=== PATIENT | male | born 1965 | race Caucasian/White ===

== ENCOUNTER → 2016-05-03 | Outpatient (CLI) | payer BC ==
--- NOTE | 2016-05-03 18:18 | XR ---
EXAMINATION TYPE: XR chest 2V DATE OF EXAM: 05/03/2016 6:03 PM COMPARISON: NONE HISTORY: Hypertension TECHNIQUE: Frontal and lateral views of the chest are obtained. FINDINGS: Heart and mediastinum are normal. Lungs are clear. Diaphragm is normal. Bony thorax appear s normal. IMPRESSION: Normal chest
== END | disposition home or self-care (01) ==
LOC: RADXRMAIN 17:51
PROVIDERS: ATTEND Nurse Practitioner Family
DX: I10 Essential (primary) hypertension (principal)
CPT/HCPCS: 71020

== ENCOUNTER → 2021-11-05 | Outpatient (CLI) | payer BC ==
[2021-11-05 11:57] LABS: Creatinine,Urine Random 114.3 mg/dL
[2021-11-05 17:16] LABS: African American GFR (CKD) 63.7 (60.0-200.0); Anion Gap 11.8 mmol/L (10.00-18.00); BUN/Creat Ratio 14.86 Ratio (12.00-20.00); Blood Urea Nitrogen 20.8 mg/dL (9.0-27.0); Calcium 10.1 mg/dL (8.7-10.3); Carbon Dioxide 24.2 mmol/L (20.0-27.5); Potassium 4.6 mmol/L (3.5-5.5); Uric Acid 5.3 mg/dL (3.7-8.7)
[2021-11-05 17:35] LABS: HCT 44.4 % (39.6-50.0); HGB 14.1 g/dL (13.0-17.0); MCH 30.7 pg (27.0-32.0); MCHC 31.8 g/dL (32.0-37.0); MCV 96.5 fL (80.0-97.0); Mean Platelet Volume 10.3 fL (9.5-12.2); NRBC Per 100 WBC 0 /100 WBCS (0.0-0.0); Platelet Count 229 X 10*3/uL (140-440); RDW 12.9 % (11.5-14.5); WBC 5.54 X 10*3/uL (4.50-10.00)
== END | disposition home or self-care (01) ==
LOC: LABWHC1 11:02
PROVIDERS: ATTEND Internal Medicine Nephrology
DX: N18.31 Chronic kidney disease, stage 3a (principal)
CPT/HCPCS: 36415; 80048; 82306; 82570; 84156; 84550; 85027; 87086

== ENCOUNTER → 2022-07-15 | Outpatient (CLI) | payer BC ==
[2022-07-15 17:31] LABS: Basophils # (A) 0.06 X 10*3/uL (0.00-0.10); Basophils % (A) 0.6 %; Eosinophils # (A) 0.34 X 10*3/uL (0.04-0.35); Eosinophils % (A) 3.7 %; HCT 39.1 % (39.6-50.0); HGB 13.2 g/dL (13.0-17.0); Immature Grans, Automated 0.5 %; Lymphocytes # (A) 1.11 X 10*3/uL (0.90-5.00); MCH 30.7 pg (27.0-32.0); MCHC 33.8 g/dL (32.0-37.0); MCV 90.9 fL (80.0-97.0); Mean Platelet Volume 9.7 fL (9.5-12.2); Monocytes # (A) 0.93 X 10*3/uL (0.20-1.00); NRBC Per 100 WBC 0 /100 WBCS (0.0-0.0); Neutrophils # (A) 6.79 X 10*3/uL (1.80-7.70); Neutrophils % (A) 73.2 %; Platelet Count 256 X 10*3/uL (140-440); RDW 12.9 % (11.5-14.5); WBC 9.28 X 10*3/uL (4.50-10.00)
[2022-07-15 18:01] LABS: ALT 41 U/L (10-49); AST 37 U/L (14-35); African American GFR (CKD) 56.4 (60.0-200.0); Albumin 4.5 g/dL (3.8-4.9); Albumin/Globulin Ratio 1.68 (1.60-3.17); Alkaline Phosphatase 114 U/L (41-126); BUN/Creat Ratio 17.47 Ratio (12.00-20.00); Blood Urea Nitrogen 26.9 mg/dL (9.0-27.0); Calcium 9.8 mg/dL (8.7-10.3); Carbon Dioxide 24.5 mmol/L (20.0-27.5); Chloride 98 mmol/L (96-109); Chol/HDL Ratio 3.76 Ratio; Globulin 2.7 g/dL (1.6-3.3); Glucose 113 mg/dL (70-110); LDL Cholesterol,Calculated 98.5 mg/dL (0.0-131.0); Non-African American GFR(CKD) 48.7 (60.0-200.0); Potassium 5.1 mmol/L (3.5-5.5); Sodium 136 mmol/L (135-145); Total Protein 7.1 g/dL (6.2-8.2)
== END | disposition home or self-care (01) ==
LOC: LABWHC1 09:19
DX: Z00.00 Encounter for general adult medical examination without abnormal findings (principal); Z12.5 Encounter for screening for malignant neoplasm of prostate; R79.9 Abnormal finding of blood chemistry, unspecified
CPT/HCPCS: 36415; 80053; 80061; 83036; 84153; 84443; 85025